=== PATIENT | female | born 1945 | race Caucasian/White ===

== ENCOUNTER → 2016-10-05 | Outpatient (CLI) | payer MEDICARE, BC ==
[~2016-10-05] MED LIST: ALPRAZOLAM PO; ANTIVERT PO; ANTIVERT50 MG PO; ASPIRIN81 M2 PO; B COMPLEX1 EACH PO; DECADRON PO; FLEXERIL10 MG PO; MEDROL DOSEPAK4 MG DOB; NOLVADEX PO; PHENERGAN25 MG PO; PRILOSEC20 M1 PO; SIMVASTATIN20 MG PO; SYNTHROID0.05 MG PO; TUMS500 MG PO; VITAMIN D2000 UNIT PO; ZOFRAN8 MG PO
== END | disposition home or self-care (01) ==
LOC: CSSDAY 10:33
DX: M81.0 Age-related osteoporosis without current pathological fracture (principal); Z79.899 Other long term (current) drug therapy
CPT/HCPCS: 96374; J3489